=== PATIENT | male | born 1945 | race Caucasian/White ===

== ENCOUNTER → 2016-05-16 | Outpatient (CLI) | payer OTHER, MEDICARE ==
[2016-05-16 09:36] LABS: ALT 33 U/L (21-72); AST 22 U/L (17-59); Alkaline Phosphatase 65 U/L (38-126); Anion Gap 10 mmol/L; Blood Urea Nitrogen 25 mg/dL (9-20); Calcium 9.5 mg/dL (8.4-10.2); Carbon Dioxide 31 mmol/L (22-30); Chloride 102 mmol/L (98-107); Cholesterol 129 mg/dL (<200); Glucose 110 mg/dL (74-99); HDL Cholesterol 53 mg/dL (40-60); Non-African American GFR(MDRD) >60 (>60 ml/min/1.73 sqM); Potassium 5.2 mmol/L (3.5-5.1); Sodium 143 mmol/L (137-145); Total Bilirubin 1.2 mg/dL (0.2-1.3); Total Protein 7.4 g/dL (6.3-8.2); Triglycerides 78 mg/dL (<150)
== END | disposition home or self-care (01) ==
LOC: LABWHC1 08:59
PROVIDERS: ATTEND Internal Medicine Interventional Cardiology
DX: E78.2 Mixed hyperlipidemia (principal)
CPT/HCPCS: 36415; 80053; 80061

== ENCOUNTER → 2016-06-15 | Outpatient (CLI) | payer OTHER, MEDICARE ==
--- NOTE | 2016-06-15 11:12 | XR ---
EXAMINATION TYPE: XR chest 2V DATE OF EXAM: 06/15/2016 11:03 AM COMPARISON: 01/08/2011 TECHNIQUE: PA and lateral views submitted. HISTORY: MRI clearance FINDINGS: The lungs are clear and there is no pneumothorax, pleural effusion, or focal pneumonia. Hyperinflation suggests COPD. Sternotomy wires and clips are noted. No diagnostic evidence of an epic ardial lead. Surgical clip in the abdomen noted. Hypertrophic and degenerative change of the spine no sai. Arthropathy of the shoulder and atherosclerotic change aorta. IMPRESSION: 1. No acute process.
== END | disposition home or self-care (01) ==
LOC: RADXRMAIN 10:49
PROVIDERS: ATTEND Physical Medicine & Rehabilitation
DX: Z01.818 Encounter for other preprocedural examination (principal)
CPT/HCPCS: 71020

== ENCOUNTER → 2016-11-06 | Outpatient (CLI) | payer OTHER, MEDICARE ==
[2016-11-06 10:41] LABS: ALT 39 U/L (21-72); AST 24 U/L (17-59); Alkaline Phosphatase 66 U/L (38-126); Anion Gap 8 mmol/L; Blood Urea Nitrogen 20 mg/dL (9-20); Calcium 9.2 mg/dL (8.4-10.2); Carbon Dioxide 30 mmol/L (22-30); Chloride 104 mmol/L (98-107); Cholesterol 139 mg/dL (<200); Glucose 101 mg/dL (74-99); HDL Cholesterol 56 mg/dL (40-60); Non-African American GFR(MDRD) >60 (>60 ml/min/1.73 sqM); Potassium 4.8 mmol/L (3.5-5.1); Sodium 142 mmol/L (137-145); Total Bilirubin 0.9 mg/dL (0.2-1.3); Total Protein 6.6 g/dL (6.3-8.2)
== END | disposition home or self-care (01) ==
LOC: LABWHC1 09:59
PROVIDERS: ATTEND Internal Medicine Interventional Cardiology
DX: E78.2 Mixed hyperlipidemia (principal)
CPT/HCPCS: 36415; 80053; 80061

== ENCOUNTER → 2017-01-04 | Outpatient (CLI) | payer OTHER, MEDICARE ==
--- NOTE | 2017-01-04 08:36 | US ---
EXAMINATION TYPE: US duplex aorta DATE OF EXAM: 01/04/2017 COMPARISON: NONE CLINICAL HISTORY: Z76.89 AAA. screening EXAM MEASUREMENTS: Abdominal Aorta: Proximal: 2.8 x 2.6 cm Mid: 2.1 x 2.2 cm Distal: 2.1 x 2.1 cm Bifurcation: right 1.6 x 1.5 cm left 1.6 x 1.2 cm No diagnostic evidence of aneurysm. Intimal thickening and atherosclerotic plaque noted. IMPRESSION: 1. No diagnostic evidence of aneurysm.
== END | disposition home or self-care (01) ==
LOC: RADUSWWP 07:57
PROVIDERS: ATTEND Family Medicine
DX: Z09 Encounter for follow-up examination after completed treatment for conditions other than malignant neoplasm (principal); Z76.89 Persons encountering health services in other specified circumstances
CPT/HCPCS: 93979

== ENCOUNTER → 2017-09-09 | Outpatient (CLI) | payer MEDICARE ==
[2017-09-09 09:56] LABS: Albumin 4.1 g/dL (3.5-5.0); Calcium 9.5 mg/dL (8.4-10.2); Potassium 5.1 mmol/L (3.5-5.1); Total Bilirubin 1.1 mg/dL (0.2-1.3); Total Protein 6.6 g/dL (6.3-8.2)
== END | disposition home or self-care (01) ==
LOC: LABWHC1 08:49
PROVIDERS: ATTEND Internal Medicine Interventional Cardiology
DX: E78.5 Hyperlipidemia, unspecified (principal)
CPT/HCPCS: 36415; 80053; 80061; 82550

== ENCOUNTER → 2018-02-10 | Outpatient (CLI) | payer MEDICARE ==
[2018-02-10 10:49] LABS: Basophils % (A) 0 %; Eosinophils # (A) 0.1 k/uL (0-0.7); Eosinophils % (A) 2 %; HCT 47.5 % (39.0-53.0); HGB 15.7 gm/dL (13.0-17.5); Lymphocytes # (A) 1.1 k/uL (1.0-4.8); Lymphocytes % (A) 19 %; MCH 29.4 pg (25.0-35.0); MCHC 32.9 g/dL (31.0-37.0); MCV 89.4 fL (80.0-100.0); Mean Platelet Volume 7.8; Monocytes # (A) 0.3 k/uL (0-1.0); Monocytes % (A) 6 %; Neutrophils # (A) 4.2 k/uL (1.3-7.7); Neutrophils % (A) 71 %; Platelet Count 142 k/uL (150-450); RBC 5.32 m/uL (4.30-5.90); RDW 13.3 % (11.5-15.5)
[2018-02-10 16:10] LABS: Albumin 4.3 g/dL (3.80-4.90); Albumin/Globulin Ratio 2.26 (1.20-2.10); Anion Gap 2.6 mmol/L (4.00-12.00); Calcium 9.3 mg/dL (8.7-10.3); Carbon Dioxide 34.4 mmol/L (21.6-31.8); Globulin 1.9 g/dL (2.1-3.7); LDL Cholesterol,Calculated 65.8 mg/dL (0.0-131.0); Total Bilirubin 1.2 mg/dL (0.2-1.2); Total Protein 6.2 g/dL (6.2-8.2); VLDL Calculation 13.2 mg/dL (5.00-40.00)
[2018-02-10 17:14] LABS: Hemoglobin A1C 5.7 % (4.0-6.0)
== END ==
LOC: LABWHC1 09:57
PROVIDERS: ATTEND Internal Medicine Interventional Cardiology
DX: Z00.01 Encounter for general adult medical examination with abnormal findings (principal); E78.2 Mixed hyperlipidemia; Z12.5 Encounter for screening for malignant neoplasm of prostate
CPT/HCPCS: 36415; 80053; 80061; 82550; 83036; 84153; 85025

== ENCOUNTER → 2019-02-26 | Outpatient (CLI) | payer MEDICARE ==
[2019-02-26 15:33] LABS: African American GFR (CKD) 62.7 (60.0-200.0); Albumin 4.4 g/dL (3.80-4.90); Albumin/Globulin Ratio 2.32 (1.60-3.17); Anion Gap 5.3 mmol/L (4.00-12.00); BUN/Creat Ratio 23.08 Ratio (12.00-20.00); Calcium 9.5 mg/dL (8.7-10.3); Carbon Dioxide 33.7 mmol/L (21.6-31.8); Chol/HDL Ratio 3.28; Globulin 1.9 g/dL (1.6-3.3); LDL Cholesterol,Calculated 110.8 mg/dL (0.0-131.0); Non-African American GFR(CKD) 54.1 (60.0-200.0); Potassium 5.1 mmol/L (3.5-5.5); Total Bilirubin 0.8 mg/dL (0.3-1.2); Total Protein 6.3 g/dL (6.2-8.2); VLDL Calculation 19.2 mg/dL (5.00-40.00)
== END | disposition home or self-care (01) ==
LOC: LABWHC1 10:05
PROVIDERS: ATTEND Internal Medicine Interventional Cardiology
DX: E78.2 Mixed hyperlipidemia (principal)
CPT/HCPCS: 36415; 80053; 80061

== ENCOUNTER → 2019-05-05 | Outpatient (CLI) | payer MEDICARE ==
[2019-05-05 16:31] LABS: Chol/HDL Ratio 2.64; LDL Cholesterol,Calculated 72.6 mg/dL (0.0-131.0); VLDL Calculation 14.4 mg/dL (5.00-40.00)
== END | disposition home or self-care (01) ==
LOC: LABWHC1 08:25
PROVIDERS: ATTEND Internal Medicine Interventional Cardiology
DX: E78.2 Mixed hyperlipidemia (principal)
CPT/HCPCS: 36415; 80061; 84450; 84460

== ENCOUNTER → 2019-09-17 | Outpatient (CLI) | payer MEDICARE ==
[2019-09-17 19:08] LABS: African American GFR (CKD) 68.6 (60.0-200.0); Albumin 4.3 g/dL (3.80-4.90); Albumin/Globulin Ratio 1.95 (1.60-3.17); Anion Gap 6.5 mmol/L (4.00-12.00); BUN/Creat Ratio 17.5 Ratio (12.00-20.00); Calcium 9.5 mg/dL (8.7-10.3); Carbon Dioxide 32.5 mmol/L (21.6-31.8); Chol/HDL Ratio 2.52; Globulin 2.2 g/dL (1.6-3.3); LDL Cholesterol,Calculated 54.6 mg/dL (0.0-131.0); Non-African American GFR(CKD) 59.2 (60.0-200.0); Potassium 4.4 mmol/L (3.5-5.5); Total Bilirubin 1.7 mg/dL (0.2-1.2); Total Protein 6.5 g/dL (6.2-8.2); VLDL Calculation 15.4 mg/dL (5.00-40.00)
== END | disposition home or self-care (01) ==
LOC: LABWHC1 10:55
PROVIDERS: ATTEND Nurse Practitioner Adult Health
DX: E78.2 Mixed hyperlipidemia (principal); I10 Essential (primary) hypertension
CPT/HCPCS: 36415; 80053; 80061

== ENCOUNTER → 2019-10-21 | Outpatient (CLI) | payer MEDICARE ==
[2019-10-21 11:46] LABS: HCT 44.7 % (39.0-53.0); HGB 13.8 gm/dL (13.0-17.5); MCH 28.3 pg (25.0-35.0); MCHC 30.8 g/dL (31.0-37.0); MCV 91.9 fL (80.0-100.0); Platelet Count 130 k/uL (150-450); RBC 4.87 m/uL (4.30-5.90); RDW 13.1 % (11.5-15.5); WBC 5.4 k/uL (3.8-10.6)
== END | disposition home or self-care (01) ==
LOC: LABPAT 09:54
PROVIDERS: ATTEND Internal Medicine Interventional Cardiology
DX: Z01.818 Encounter for other preprocedural examination (principal); I25.810 Atherosclerosis of coronary artery bypass graft(s) without angina pectoris
CPT/HCPCS: 36415; 80051; 82565; 84520; 85027

== ENCOUNTER → 2019-10-27 | Day surgery (SDC) | payer MEDICARE ==
[2019-10-21 14:44] VITALS: BMI 28.4
[~2019-10-27] MED LIST: ALPRAZolam 0.25 MG TAB PO PRN; ALPRAZolam 0.5 MG TAB PO PRN; ASPIRIN 325 MG TAB PO STA; ASPIRIN 81 MG PO SCH; ATORVASTATIN 20 MG TAB PO SCH; ATORVASTATIN 80 MG TAB PO STA; IOPAMIDOL-370 100ML BTL INJ ONE; ISOSORBIDE MONONITRATE ER 60 MG TAB.ER.24H PO SCH; LACTATED RINGERS 1,000 ML IV SCH; LIDOCAINE 1% (10MG/ML) FOR IV START INTRADERMA PRN; LIDOCAINE 1% INJ 10MG/ML (20 ML MDV) ONE; LIDOCAINE 1% INJ 10MG/ML (20 ML MDV) SQ ONE; NITROGLYCERIN SL TABS 0.4 MG TAB SUBLINGUAL PRN; PANTOPRAZOLE 40 MG TABLET PO SCH; RX INFO: IV CONTRAST WAS GIVEN 1 EACH MISC MISCELLANE PRN; SODIUM CHLORIDE 0.9% 1,000 ML IV SCH; SODIUM CHLORIDE 0.9% 1,000 ML in EMPTY BAG 1 BAG IV ONE; TAMSULOSIN 0.4 MG CAP.ER.24H PO SCH; VALSARTAN 160 MG TAB PO SCH; amLODIPine 5 MG TAB PO SCH; fentaNYL (PF) 50 MCG/ML 2 ML AMP IV ONE; fentaNYL (PF) 50 MCG/ML 2 ML AMP ONE; hydroCHLOROthiazide 25 MG TAB PO SCH
[2019-10-27 09:09] VITALS: RESP 16; TEMP 97.6
[2019-10-27 15:07] VITALS: BP 115/56; PULSE 64
--- NOTE | 2019-10-27 17:15 | CC ---
CARDIAC CATHETERIZATION REPORT Mr. Olson is a 74-year-old male with known history of coronary artery disease, status post coronary artery bypass grafting, history of hypertension and hyperlipidemia who has been complaining of progressive dyspnea on exertion and occasional episodes of chest discomfort. In view of that, recommendation was made regarding cardiac catheterization. The procedure, its risks and complications were discussed with the patient, who was in full understanding and agreement. PROCEDURE DESCRIPTION: Patient was brought to the concrete laborer in a fasting semi-sedated state after receiving fentanyl and Benadryl and achieving a moderate conscious sedated state. Using Xylocaine anesthesia and Seldinger technique, a 6-British sheath was introduced in the right femoral artery. Selective right and left coronary angiography was performed using 6-British, 4 bend right and left Katharine catheters. Multiple views were taken of the coronary arteries, including hemiaxial views. Following that, the 6-British right Katharine was used to cannulate the saphenous vein graft to the obtuse marginal branch and distal left circumflex, and an LUIS ALFREDO catheter was used to cannulate the GARCIA to the LAD. Images of the grafts were obtained. Following that, a 6-British tight pigtail catheter was introduced into the left ventricle and pressures were calculated. Following that, catheter and sheath were removed. Hemostasis was obtained with compression of the right groin. There was no immediate complication. Patient was returned to his room in stable condition. FINDINGS: 1. FLUOROSCOPY: There was severe calcification involving the left main as well as the left anterior descending artery. 2. LEFT MAIN: This is a large-sized vessel bifurcating into left circumflex and left anterior descending artery. Left main distally has a 50% to 60% stenosis. The rest of the vessel has no high-grade stenosis. 3. LEFT ANTERIOR DESCENDING ARTERY: This vessel is totally occluded proximally with no significant antegrade flow. 4. LEFT CIRCUMFLEX: This is a large dominant vessel bifurcating distally into PDA and posterolateral segment and branches. The left circumflex proximally has diffuse intimal disease of 30% to 40%. The second obtuse marginal branch has diffuse disease proximally with area of stenosis up to 90%. Beyond that, the caliber of the vessel is small. Distally the PLV appears to be chronically occluded. 5. RIGHT CORONARY ARTERY: This is a small nondominant vessel, chronically occluded in the mid segment with ipsilateral collaterals filling up a small vessel distally. 6. SAPHENOUS VEIN GRAFT TO THE FIRST OBTUSE MARGINAL BRANCH: The proximal and distal anastomotic sites are patent. In the proximal segment of the body of the graft there is an eccentric 40% to 50% plaque. The rest of the vessel has no high-grade stenosis. The flow into the obtuse marginal branch is brisk. The size of the obtuse marginal branch is large. 7. SAPHENOUS VEIN GRAFT TO THE DISTAL LEFT CIRCUMFLEX: The proximal and distal anastomotic sites are patent. The flow into the distal segment is brisk. The vessel size is small in caliber. 8. GARCIA to LAD: The distal anastomotic site is patent. The flow into the LAD is brisk. There is retrograde flow into the proximal segment. 9. LEFT VENTRICULOGRAM: Left ventriculogram was not performed. 10.HEMODYNAMICS: There was no gradient across the aortic valve. The left ventricular end-diastolic pressure was 10 to 12 mmHg. CONCLUSION: 1. Calcified coronary arteries. 2. Severe triple-vessel coronary disease. 3. Distal left main disease of 50% to 60%. 4. Patent GARCIA to LAD. 5. Patent saphenous vein graft to the first obtuse marginal branch with proximal plaque in the body of the graft of 50%. 6. Patent saphenous vein graft to the distal left circumflex. RECOMMENDATIONS: In view of findings and anatomy, I have recommended continued medical therapy with the aggressive coronary risk modifications that have been initiated. Those findings and recommendations were discussed with the patient and his family, and they are in full understanding and agreement. Duration of sedation was 23 minutes. MMODL / IJN: [id number] /
--- NOTE | 2019-10-27 17:27 | LTR ---
October 27, 2019 To: Dr. Clayton Giles Re: Jose Olson (45) Dear Dr. Giles, I had the pleasure of performing cardiac catheterization on Mr. Olson at [facility] on October 26, and a full copy of the procedure note will be forwarded to you. In brief, he was found to have patent saphenous vein graft to the obtuse marginal branch, distal left circumflex as well as patent GARCIA to the LAD. In view of that, I have recommended continued medical therapy with the aggressive coronary risk modifications that have been initiated. Thank you again for allowing me to participate in his care. Please feel free to call with any questions. Sincerely yours, Thi Cole M.D. VALERIE / KEITH: [phone] /
== END | disposition home or self-care (01) ==
LOC: CATHCVL 08:35
PROVIDERS: ATTEND Internal Medicine Interventional Cardiology
DX: I25.700 Atherosclerosis of coronary artery bypass graft(s), unspecified, with unstable angina pectoris (principal); I25.110 Atherosclerotic heart disease of native coronary artery with unstable angina pectoris; R06.09 Other forms of dyspnea; R07.89 Other chest pain; I10 Essential (primary) hypertension; E78.2 Mixed hyperlipidemia; I49.3 Ventricular premature depolarization; M19.90 Unspecified osteoarthritis, unspecified site; N28.9 Disorder of kidney and ureter, unspecified; E66.3 Overweight; Z68.28 Body mass index [BMI] 28.0-28.9, adult; Z79.899 Other long term (current) drug therapy; Z79.82 Long term (current) use of aspirin; Z79.52 Long term (current) use of systemic steroids; Z79.51 Long term (current) use of inhaled steroids; Z95.1 Presence of aortocoronary bypass graft; Z96.659 Presence of unspecified artificial knee joint; Z90.49 Acquired absence of other specified parts of digestive tract; Z90.89 Acquired absence of other organs; Z87.891 Personal history of nicotine dependence
CPT/HCPCS: 93459; C1894; C1769; J2001; J3010; Q9967

== ENCOUNTER → 2020-09-08 | Outpatient (CLI) | payer MEDICARE ==
[2020-09-08 17:18] LABS: African American GFR (CKD) 76.2 (60.0-200.0); Albumin 4.1 g/dL (3.80-4.90); Albumin/Globulin Ratio 2.05 (1.60-3.17); Anion Gap 6.6 mmol/L (4.00-12.00); BUN/Creat Ratio 18.18 Ratio (12.00-20.00); Calcium 9.1 mg/dL (8.7-10.3); Carbon Dioxide 29.4 mmol/L (21.6-31.8); Chol/HDL Ratio 2.57; LDL Cholesterol,Calculated 59.4 mg/dL (0.0-131.0); Non-African American GFR(CKD) 65.8 (60.0-200.0); Potassium 4.8 mmol/L (3.5-5.5); Total Bilirubin 1.4 mg/dL (0.3-1.2); Total Protein 6.1 g/dL (6.2-8.2); VLDL Calculation 12.6 mg/dL (5.00-40.00)
== END | disposition home or self-care (01) ==
LOC: LABWHC1 10:14
PROVIDERS: ATTEND Internal Medicine Interventional Cardiology
DX: E78.2 Mixed hyperlipidemia (principal)
CPT/HCPCS: 36415; 80053; 80061

== ENCOUNTER → 2021-03-23 | Outpatient (CLI) | payer MEDICARE ==
[2021-03-23 17:24] LABS: ALT 28 U/L (10-49); AST 19 U/L (14-35); Chol/HDL Ratio 2.05 Ratio; LDL Cholesterol,Calculated 50.4 mg/dL (0.0-131.0)
== END | disposition home or self-care (01) ==
LOC: LABWHC1 09:12
PROVIDERS: ATTEND Nurse Practitioner Adult Health
DX: E78.2 Mixed hyperlipidemia (principal)
CPT/HCPCS: 36415; 80061; 84450; 84460

== ENCOUNTER → 2021-09-26 | Outpatient (CLI) | payer MEDICARE ==
[2021-09-26 10:56] LABS: African American GFR (CKD) 67.7 (60.0-200.0); Albumin 4.3 g/dL (3.8-4.9); Albumin/Globulin Ratio 1.79 (1.60-3.17); BUN/Creat Ratio 16.42 Ratio (12.00-20.00); Blood Urea Nitrogen 19.7 mg/dL (9.0-27.0); Calcium 9.4 mg/dL (8.7-10.3); Globulin 2.4 g/dL (1.6-3.3); HDL Cholesterol 50.8 mg/dL (40.00-60.00); Non-African American GFR(CKD) 58.4 (60.0-200.0); Potassium 4.9 mmol/L (3.5-5.5); Total Bilirubin 0.9 mg/dL (0.30-1.20); Total Protein 6.7 g/dL (6.2-8.2)
[2021-09-26 11:12] LABS: Chol/HDL Ratio 2.17 Ratio; LDL Cholesterol,Direct Reflex 52.4 mg/dL (0.00-129.00)
== END | disposition home or self-care (01) ==
LOC: LABWHC1 07:25
PROVIDERS: ATTEND Nurse Practitioner Adult Health
DX: E78.2 Mixed hyperlipidemia (principal)
CPT/HCPCS: 36415; 80053; 80061; 83721

== ENCOUNTER 2021-12-29 16:00 | Emergency (ER) | payer MEDICARE ==
[2021-12-29 17:28] VITALS: TEMP 97.8
--- NOTE | 2021-12-29 18:31 | XR ---
EXAMINATION TYPE: XR forearm RT DATE OF EXAM: 12/29/2021 COMPARISON: NONE HISTORY: Pain TECHNIQUE: 2 views FINDINGS: There is nondisplaced transverse fracture of the olecranon process of the ulna. Her separat ion up to 1.5 cm of the fragments. No dislocation. The distal radius and ulna appear intact. Radial h ead appears intact. IMPRESSION: Acute olecranon process fracture with displacement.
--- NOTE | 2021-12-29 18:33 | XR ---
EXAMINATION TYPE: XR humerus RT DATE OF EXAM: 12/29/2021 COMPARISON: NONE HISTORY: Pain TECHNIQUE: 4 views FINDINGS: The humerus is intact. Shoulder joint is anatomic. There is a mildly displaced fracture ole cranon process of the ulna. The radial head is intact. There is mild spurring of the radial head. AC joint is intact. IMPRESSION: Olecranon process fracture of the ulna. No evidence of humerus fracture.
--- NOTE | 2021-12-29 18:34 | XR ---
EXAMINATION TYPE: XR hand complete RT DATE OF EXAM: 12/29/2021 COMPARISON: NONE HISTORY: Pain TECHNIQUE: 3 views FINDINGS: There is narrowing and spurring at the third MP joint. There is some narrowing and mild spu rring at the PIP joints of the fingers. I see no fracture nor dislocation. There is narrowing of the radiocarpal joint space. IMPRESSION: Multiple areas of osteoarthritis. No fracture seen.
[2021-12-29] MEDS ORDERED: oxyCODONE-APAP 10-325MG 1 EACH TAB PO STA (21:42)
--- NOTE | 2021-12-29 21:47 | ED ---
General Adult HPI - General Chief complaint: Extremity Injury, Upper Stated complaint: Fall, Right arm injury Time Seen by Provider: 12/29/21 17:34 Source: patient Mode of arrival: ambulatory Limitations: no limitations - History of Present Illness Initial comments: Dictation was produced using [employer] dictation software. please excuse any grammatical, word or spelling errors. Chief Complaint: 76-year-old male presents to emergency department after fall History of Present Illness: 76-year-old male who presents emergency department after fall. He was trying to step on his trailer when he lost his balance causing fall back. He fell from a height of approximately 1-2 feet. He landed on his right shoulder. He did hit his head. He is not sure if he lost consciousness. He does not take any anti-correlation medication. He presents with right elbow pain and right mid to upper back pain. Denies any neck pain. Nursing paresthesias. The ROS documented in this emergency department record has been reviewed and confirmed by me. Those systems with pertinent positive or negative responses have been documented in the HPI. All other systems are other negative and/or noncontributory. PHYSICAL EXAM: General Impression: Alert and oriented x3, not in acute distress HEENT: Normocephalic atraumatic, extra-ocular movements intact, pupils equal and reactive to light bilaterally, mucous membranes moist. Cardiovascular: Heart regular rate and rhythm Chest: Able to complete full sentences, no retractions, no tachypnea Abdomen: abdomen soft, non-tender, non-distended, no organomegaly Musculoskeletal: Pulses present and equal in all extremities, no peripheral edema, mild palpatory tenderness to the midline lower thoracic spine without any step-offs crepitus or deformities, he does have significant swelling and abrasion to the right elbow area. Motor: no focal deficits noted Neurological: CN II-XII grossly intact, no focal motor or sensory deficits noted Skin: Intact with no visualized rashes Psych: Normal affect and mood ED course: 76-year-old male presents to emergency department after fall. Vital signs upon arrival are within acceptable limits. Patient was in the waiting room for several hours. X-rays were ordered by triage nurse her advanced triage protocol. Right hand x-ray unremarkable. Humerus and forearm x-ray shows acute olecranon fracture with displacement and separation of up to 1.5 cm. Patient does not have any signs of open fracture. Patient given Percocet. Given patient's age head injury computed tomography scan of the brain ordered. Patient also complaining of some back pain from the fall. CT of the spine also ordered. Computed tomography scan of the head and C-spine unremarkable. No acute intracranial abnormalities. Thoracic spine CT shows no compression fractures but there does appear to be degenerative changes. Patient does have established care with orthopedic surgery. Patient placed in a splint and sling. Patient observed in emergency department for approximately 6 hours and 40 minutes. Evaluated at bedside at 10:45 PM 5 to be stable medical condition. Patient be discharged. EKG interpretation: Ventricular rate 54, sinus bradycardia,. 163, personally, QTc 412. No HI prolongation, no QTC prolongation, no ST or T-wave changes noted. Overall, this EKG is unremarkable - Related Data Home Medications Medication Instructions Recorded Confirmed Albuterol Sulfate [Albuterol 1 - 2 puff PO DAILY PRN 10/21/19 10/21/19 Sulfate Hfa] Aspirin [Adult Low Dose Aspirin EC] 81 mg PO DAILY 10/21/19 10/27/19 Atorvastatin Calcium [Lipitor] 20 mg PO DAILY 10/21/19 10/27/19 Budesonide/Formoterol Fumarate 1 puff INHALATION DAILY PRN 10/21/19 10/21/19 [Symbicort 80-4.5 Mcg Inhaler] Clobetasol Propionate [Temovate 1 applic TOPICAL DAILY PRN 10/21/19 10/21/19 0.05% Cream] Isosorbide Mononitrate ER [Imdur] 60 mg PO DAILY 10/21/19 10/27/19 Minocycline [Minocin] 50 mg PO DAILY 10/21/19 10/27/19 Multivitamins, Thera [Multivitamin 1 tab PO DAILY 10/21/19 10/27/19 (formulary)] Omeprazole 20 mg PO DAILY 10/21/19 10/27/19 Tamsulosin HCl [Flomax] 0.4 mg PO DAILY 10/21/19 10/27/19 Triamcinolone 0.1% Cream [Kenalog 1 applic TOPICAL DAILY 10/21/19 10/21/19 0.1% Cream] Valsartan/Hydrochlorothiazide 1 each PO DAILY 10/21/19 10/27/19 [Valsartan-Hctz 160-25 mg Tab] amLODIPine BESYLATE 5 mg PO DAILY 10/21/19 10/27/19 Previous Rx's Medication Instructions Recorded oxyCODONE HCL/ACETAMINOPHEN 1 tab PO Q6HR PRN 3 Days #12 tab 12/29/21 [Percocet 5-325 mg] Allergies Allergy/AdvReac Type Severity Reaction Status Date / Time No Known Allergies Allergy Verified 12/29/21 17:28 Review of Systems ROS Statement: Those systems with pertinent positive or pertinent negative responses have been documented in the HPI. ROS Other: All systems not noted in ROS Statement are negative. Past Medical History Past Medical History: Asthma, Hypertension Additional Past Medical History / Comment(s): hyperecholestremia. History of Any Multi-Drug Resistant Organisms: None Reported Past Surgical History: Appendectomy, Cholecystectomy, Orthopedic Surgery Additional Past Surgical History / Comment(s): open heart surgery Past Psychological History: No Psychological Hx Reported Smoking Status: Former smoker Past Alcohol Use History: Occasional Past Drug Use History: None Reported General Exam Limitations: no limitations Course Vital Signs 12/29/21 12/29/21 17:24 22:40 Temperature 97.8 F Pulse Rate 63 65 Respiratory 20 18 Rate Blood Pressure 177/85 136/76 O2 Sat by Pulse 97 98 Oximetry Procedures - Orthopedic Splinting/Casting Injury #1 Side: right Upper Extremity Injury Location: elbow, short arm Disposition Clinical Impression: Elbow fracture Disposition: HOME SELF-CARE Condition: Good Instructions (If sedation given, give patient instructions): Arm Fracture in Adults (ED) Prescriptions: oxyCODONE HCL/ACETAMINOPHEN [Percocet 5-325 mg] 1 tab PO Q6HR PRN 3 Days #12 tab PRN Reason: Pain Is patient prescribed a controlled substance at d/c from ED?: Yes If prescribed controlled substance>3 days was MAPS reviewed?: Prescribed <3 Days Referrals: Markus Jackson DO [Doctor of Osteopathic Medicine] - 1-2 days Time of Disposition: 22:41
--- NOTE | 2021-12-29 22:20 | CT ---
EXAMINATION TYPE: CT brain l[facility] DATE OF EXAM: 12/29/2021 COMPARISON: None HISTORY: Pt fell 3 feet off a nonmoving trailer CT DLP: 2948.3 mGycm Automated exposure control for dose reduction was used. There is cerebral cortical atrophy. There is no mass effect or midline shift. No sign of intracranial hemorrhage. The calvarium is intact. Skull base is intact. There is normal aeration of the mastoid s inuses. The cervical vertebra have normal alignment. There is degenerative disc space narrowing at C3-4 and C 6-7 with spurring of the endplates. Posterior element are intact. There is mild hypertrophic multilev el cervical facet arthropathy. Skull base is intact. IMPRESSION: Cerebral atrophy. No acute intracranial abnormality. Mild spondylotic changes in the cervical spine. No fracture seen.
--- NOTE | 2021-12-29 22:29 | CT ---
EXAMINATION TYPE: CT thoracic spine wo con DATE OF EXAM: 12/29/2021 COMPARISON: Chest CT scan 12/21/2010 HISTORY: Pt fell 3 feet off a nonmoving trailer CT DLP: 2948.3 mGycm Automated exposure control for dose reduction was used. Images obtained from T1 to T12 with no contrast. The thoracic vertebrae have fairly normal alignment. There is a very slight dextroscoliosis. There is spurring anteriorly throughout the thoracic spine. No significant compression deformity. No paraspin al mass. The ribs appear intact. IMPRESSION: Multilevel thoracic spondylotic changes. No compression fracture. No significant change compared to o ld exam.
[2021-12-29 22:40] VITALS: BP 136/76; PULSE 65; RESP 18
[2021-12-29] MEDS ORDERED: ACET/COD 300 MG/30 MG STARTER PACK 6 TAB BTL PO STA (22:45)
== END 2021-12-29 23:01 | disposition home or self-care (01) ==
LOC: EC 16:00
DX: S42.401A Unspecified fracture of lower end of right humerus, initial encounter for closed fracture (principal); J45.909 Unspecified asthma, uncomplicated; I10 Essential (primary) hypertension; W01.0XXA Fall on same level from slipping, tripping and stumbling without subsequent striking against object, initial encounter
CPT/HCPCS: 29125; 70450; 72125; 72128; 93005; 99284

== ENCOUNTER → 2022-04-12 | Outpatient (CLI) | payer MEDICARE ==
[2022-04-12 15:40] LABS: LDL Cholesterol,Calculated 53.7 mg/dL (0.0-131.0); VLDL Calculation 19.26 mg/dL (5.00-40.00)
== END | disposition home or self-care (01) ==
LOC: LABWHC1 10:09
PROVIDERS: ATTEND Nurse Practitioner Adult Health
DX: I10 Essential (primary) hypertension (principal); E78.2 Mixed hyperlipidemia
CPT/HCPCS: 36415; 80061

== ENCOUNTER → 2022-10-22 | Outpatient (CLI) | payer MEDICARE ==
[2022-10-22 16:01] LABS: ALT 24 U/L (10-49); AST 24 U/L (14-35); Albumin 4.3 d/dL (3.8-4.9); Albumin/Globulin Ratio 1.87 Ratio (1.60-3.17); Alkaline Phosphatase 75 U/L (41-126); BUN/Creat Ratio 16.62 Ratio (12.00-20.00); Blood Urea Nitrogen 21.6 mg/dL (9.0-27.0); Calcium 9.9 mg/dL (8.7-10.3); Carbon Dioxide 30.5 mmol/L (21.6-31.8); Chloride 101 mmol/L (96-109); Globulin 2.3 d/dL (1.6-3.3); Glucose 115 mg/dL (70-110); LDL Cholesterol,Calculated 52.6 mg/dL (0.0-131.0); Sodium 140 mmol/L (135-145); Total Bilirubin 1.5 mg/dL (0.3-1.2); Total Protein 6.6 d/dL (6.2-8.2)
== END | disposition home or self-care (01) ==
LOC: LABWHC1 10:33
PROVIDERS: ATTEND Internal Medicine Interventional Cardiology
DX: E78.2 Mixed hyperlipidemia (principal)
CPT/HCPCS: 36415; 80053; 80061

== ENCOUNTER → 2023-09-09 | Outpatient (CLI) | payer MEDICARE ==
--- NOTE | 2023-09-09 20:43 | MR ---
EXAMINATION TYPE: MR cervical spine wo con DATE OF EXAM: 09/09/2023 6:07 PM CLINICAL INDICATION:Male, 77 years old with history of M54.12 RADICULOPATHY, CERVICAL REGION; PHH, Ne ck pain x1 year, Headaches COMPARISON: 12/29/2021. TECHNIQUE: Multi planar, multi sequence imaging was performed utilizing: T1-weighted, T2-weighted, an d turbo inversion recovery imaging of the cervical spine. IV Contrast: cc (none if empty) FINDINGS: Alignment: The cervical vertebral bodies have preserved heights. Alignment is within normal limits gi chris patient positioning. Bones: Multilevel disc space narrowing and osteophyte formation with facet and uncovertebral joint ar thropathy. Cord: The spinal cord is unremarkable with regards to their signal intensity and morphology. Discs: Intervertebral disc signal is maintained. C2-C3: No significant disc pathology. The spinal canal is patent. No neural foraminal stenosis. C3-C4: A disc osteophyte complex is present with moderate spinal canal stenosis. Bilateral facet and uncovertebral joint arthropathy are present with moderate to severe bilateral neural foraminal steno sis. C4-C5: A disc osteophyte complex is present with mild spinal canal stenosis. Bilateral facet and unc overtebral joint arthropathy are present with moderate bilateral neural foraminal stenosis. C5-C6: No significant disc pathology. The spinal canal is patent. Bilateral facet and uncovertebral joint arthropathy are present with mild right neural foraminal stenosis. The left neural foramen is p atent. C6-C7: No significant disc pathology. The spinal canal is patent. Bilateral facet and uncovertebral joint arthropathy are present with mild bilateral neural foraminal stenosis. C7-T1: No significant disc pathology. The spinal canal is patent. No neural foraminal stenosis. Other: None. IMPRESSION: Degeneration changes with moderate C3-C4 spinal canal stenosis and moderate to severe bilateral neura l foraminal stenosis.
== END | disposition home or self-care (01) ==
LOC: RADMRIMAIN 16:54
PROVIDERS: ATTEND Orthopaedic Surgery Orthopaedic Surgery of the Spine
DX: M48.02 Spinal stenosis, cervical region (principal); M50.11 Cervical disc disorder with radiculopathy, high cervical region; R53.1 Weakness
CPT/HCPCS: 72141

== ENCOUNTER → 2023-10-01 | Outpatient (CLI) | payer MEDICARE ==
[2023-10-01 15:58] LABS: Basophils # (A) 0.02 X 10*3/uL (0.00-0.10); Basophils % (A) 0.4 %; Eosinophils # (A) 0.16 X 10*3/uL (0.04-0.35); Eosinophils % (A) 2.9 %; HCT 46.4 % (39.6-50.0); HGB 15.1 g/dL (13.0-17.0); Lymphocytes # (A) 1.43 X 10*3/uL (0.90-5.00); MCH 29.2 pg (27.0-32.0); MCHC 32.5 g/dL (32.0-37.0); MCV 89.6 FL (80.0-97.0); Mean Platelet Volume 11.5 FL (9.5-12.2); Monocytes # (A) 0.56 X 10*3/uL (0.20-1.00); Monocytes % (A) 10.2 %; NRBC Per 100 WBC 0 X 10*3/uL (0.00-0.01); Neutrophils # (A) 3.33 X 10*3/uL (1.80-7.70); Neutrophils % (A) 60.3 %; Platelet Count 126 X 10*3/uL (140-440); RBC 5.18 X 10*6/uL (4.40-5.60); RDW 13.4 % (11.5-14.5); WBC 5.51 X 10*3/uL (4.50-10.00)
[2023-10-01 16:24] LABS: LDL Cholesterol,Calculated 52.5 mg/dL (0.0-131.0)
[2023-10-01 16:25] LABS: ALT 30 U/L (10-49); AST 34 U/L (14-35); Albumin 4.4 g/dL (3.8-4.9); Alkaline Phosphatase 75 U/L (41-126); BUN/Creat Ratio 20.27 Ratio (12.00-20.00); Blood Urea Nitrogen 22.3 mg/dL (9.0-27.0); Calcium 9.5 mg/dL (8.7-10.3); Carbon Dioxide 27.2 mmol/L (21.6-31.8); Chloride 101 mmol/L (96-109); Globulin 2.2 g/dL (1.6-3.3); Glucose 117 mg/dL (70-110); Potassium 4.4 mmol/L (3.5-5.5); Sodium 140 mmol/L (135-145); Total Bilirubin 1.5 mg/dL (0.3-1.2); Total Protein 6.6 g/dL (6.2-8.2)
== END | disposition home or self-care (01) ==
LOC: LABWHC1 10:32
PROVIDERS: ATTEND Internal Medicine Interventional Cardiology
DX: E78.2 Mixed hyperlipidemia (principal); I10 Essential (primary) hypertension
CPT/HCPCS: 36415; 80053; 80061; 83036; 85025

== ENCOUNTER → 2024-04-02 | Outpatient (CLI) | payer MEDICARE ==
[2024-04-02 15:12] LABS: ALT 20 U/L (10-49); AST 18 U/L (14-35); Chol/HDL Ratio 2.12 Ratio; LDL Cholesterol,Calculated 42.9 mg/dL (0.0-131.0); VLDL Calculation 13.58 mg/dL (5.00-40.00)
== END | disposition home or self-care (01) ==
LOC: LABWHC1 10:59
PROVIDERS: ATTEND Internal Medicine Interventional Cardiology
DX: E78.2 Mixed hyperlipidemia (principal)
CPT/HCPCS: 36415; 80061; 84450; 84460

== ENCOUNTER → 2024-09-24 | Outpatient (CLI) | payer MEDICARE ==
--- NOTE | 2024-09-24 13:06 | MR ---
EXAMINATION TYPE: MR knee RT wo con DATE OF EXAM: 09/24/2024 COMPARISON: NONE HISTORY: right knee pain and swelling since 07-28-24, no known injury. Internal derangement. TECHNIQUE: Multiplanar, multisequence images of the knee is performed without IV contrast. FINDINGS: MEDIAL MENISCUS: Some increased signal does not definitively extend to articular surface. Suspect int rasubstance tearing. LATERAL MENISCUS: Anterior and posterior horns are intact without tear. CRUCIATE LIGAMENTS: The anterior and posterior cruciate ligaments are intact and unremarkable. COLLATERAL LIGAMENTS: The medial collateral ligament and lateral collateral ligament complex are inta ct. Moderate amount of ill-defined fluid surrounds the medial collateral ligament extending into the subcutaneous tissue. EXTENSOR MECHANISM: Visualized quadriceps and patellar tendons are intact. Some fluid signal in Hoffa 's fat pad is noted. EFFUSION: Moderate size suprapatellar joint effusion. POPLITEAL CYST: No popliteal/cain cyst. TRICOMPARTMENT SPACES: Moderate tricompartment joint space loss with mild to moderate tricompartment spurring. CARTILAGE: Chondromalacia patella with cartilaginous loss most prominent medial aspect of the posteri or patellar pole. Fraying and cartilaginous loss medial tibial femoral compartment is seen. BONE MARROW SIGNAL: Heterogeneous diffuse increased T2 signal distal medial femoral condyle additiona l subtle serpiginous diminished T1 signal near the articular surface. OTHER: No additional significant abnormality is appreciated. IMPRESSION: 1. Suspect subchondral insufficiency fracture involving the distal medial femoral condyle with surrou nding abnormal bone marrow edema. 2. Moderate MCL sprain injury. 3. At least moderate tricompartment degenerative changes are present as detailed above. 4. Moderate size suprapatellar joint effusion. Possible Hoffa fat pad impingement syndrome, correlate clinically. [facility], , 09/24/2024 1:04 PM
== END | disposition home or self-care (01) ==
LOC: RADMRIMAIN 11:28
PROVIDERS: ATTEND Orthopaedic Surgery
DX: S83.411A Sprain of medial collateral ligament of right knee, initial encounter (principal); M23.8X1 Other internal derangements of right knee; M17.11 Unilateral primary osteoarthritis, right knee; X58.XXXA Exposure to other specified factors, initial encounter